=== PATIENT | female | born 1950 | race Caucasian/White ===

== ENCOUNTER 2017-07-05 03:06 | Emergency (ER) | payer OTHER, BC ==
[~2017-07-05] VITALS: Ht 167.6 cm; Wt 72.6 kg
[~2017-07-05 03:06] MED LIST: ACETAMINOPHEN325 M1 PO; ALBUTEROL2.5 MG/0.5 PO; BISACODYL SUPP10 MG RECTAL; BREO ELLIPTA 21 EACH PO; CIPRO250 M1 PO; COUMADIN 1MG TAB1 M1 PO; COUMADIN 2.5MG2.5 M1 PO; CRANBERRY200 MG PO; DIGOXIN125 MCG PO; FLOMAX0.4 MG PO; GENTEAL SEVERE10 GM OPHTHALMIC; KLOR-CON 1010 MEQ PO; LIORESAL 10 MG10 MG PO; LOPRESSOR50 PO; MIRALAX17 GM PO; MUCINEX TA600 MG/TA2 PO; MULTI VITAMIN1 EACH PO; NEURONTIN 300300 M1 PO; NEURONTIN600 MG PO; OLANZAPINE20 MG PO; OMEPRAZOLE20 MG PO; OXYCODONE HCL 55 MG PO; SENOKOT-S1 TA1 PO; TYLENOL325 MG PO; WELLBUTRIN XL150 MG PO; XANAX 0.25 MG0.25 MG PO; ZOCOR20 MG PO; ZYPREXA 5 MG TAB5 MG PO
[2017-07-05 03:53] LABS: URINE BILIRUBIN 2+ (Negative); URINE BLOOD 3+ (Negative); URINE CLARITY TURBID; URINE COLOR BROWN; URINE GLUCOSE-RANDOM* TRACE (Negative); URINE KETONES NEGATIVE (Negative); URINE PROTEIN (DIPSTICK) 2+ (Negative); URINE SPECIFIC GRAVITY 1.015 (1.005-1.035)
[2017-07-05 04:13] LABS: ICTOTEST (BILI CONFIRMATORY) Positive (Negative); URINE LEUKOCYTES-REFLEX 3+ (Negative); URINE NITRITE-REFLEX POSITIVE (Negative)
[2017-07-05 04:18] LABS: BACTERIA-REFLEX >30 Many /HPF (None Seen); CASTS None Seen /LPF (None Seen); CRYSTALS None Seen /LPF (None Seen); MUCUS 0-3 Light strn/LPF (None Seen); SQUAMOUS 4-10 Moderate /LPF (0-3); TRANSITIONAL EPITHEL CELL 0-3 Few /LPF (None Seen); URINE RBC >20 Many /HPF (0-2); URINE WBC-REFLEX >25 Many /HPF (0-5)
[2017-07-05 04:19] LABS: BASOPHILS 0.5 % (0.0-2.0); HEMOGLOBIN 12.6 gm/dL (12.0-15.0); LYMPHOCYTES 33.8 % (24.0-44.0); MCH 29.3 pg (26.0-34.0); MCHC 33.3 g/dL (28.0-37.0); MCV 88.2 fL (80.0-100.0); MONOCYTES 9.3 % (1.0-8.0); PLATELET COUNT 320 thou/uL (150-400); POLYS 53.4 % (36.0-66.0); RDW 15.6 % (10.5-14.5); WBC 7.5 thou/uL (4.0-11.0)
[2017-07-05 04:27] LABS: CALCIUM 9.6 mg/dL (8.5-10.1); CREATININE 0.7 mg/dL (0.6-1.0); POTASSIUM 3.6 mmol/L (3.5-5.1)
[2017-07-05] MEDS ORDERED: LASIX 40 MG TAB40 M2 PO (04:29)
[2017-07-05] MEDS ORDERED: LIDODERM1 EACH TRANSDERM (04:30)
[2017-07-05] MEDS ORDERED: CARISOPRODOL 3350 MG PO (04:31)
[2017-07-05] MEDS ORDERED: RITALIN5 MG PO (04:32)
[2017-07-05 04:33] LABS: ALBUMIN 3.1 g/dL (3.4-5.0); TOTAL BILIRUBIN 1.1 mg/dL (<0.1-1.0); TOTAL PROTEIN 7.2 g/dL (6.4-8.2)
[2017-07-05] MEDS ORDERED: OXYCONTIN10 M1 PO (04:33)
[2017-07-05] MEDS ORDERED: MELATONIN3 MG PO (04:33)
[2017-07-05] MEDS ORDERED: VOLTAREN GEL 1100 G2 TOP (04:34)
[2017-07-05] MEDS ORDERED: FLOVENT HFA 4444 MCG INH (04:36)
[2017-07-05] MEDS ORDERED: DUONEB 2.5-0.5 M3 ML INH (04:37)
[2017-07-05] MEDS ORDERED: ABILIFY 2 MG2 M1 PO (04:39)
[2017-07-05] MEDS ORDERED: PEPCID20 MG PO (04:39)
[2017-07-05] MEDS ORDERED: OXYBUTYNIN 5 MG5 M2 PO (04:40)
[2017-07-05] MEDS ORDERED: ELIQUIS5 MG PO (04:40)
[2017-07-05] MEDS ORDERED: NEURONTIN 300300 M1 PO (04:42)
[2017-07-05] MEDS ORDERED: PYRIDIUM200 MG PO (04:46)
[2017-07-05] MEDS ORDERED: BACTRIM DS TAB1 EACH PO (04:46)
== END 2017-07-05 05:34 | disposition home or self-care (01) ==
LOC: ER 03:06
PROVIDERS: Emergency Medicine
DX: N39.0 Urinary tract infection, site not specified (principal); I48.91 Unspecified atrial fibrillation; Z96.653 Presence of artificial knee joint, bilateral; Z86.73 Personal history of transient ischemic attack (TIA), and cerebral infarction without residual deficits; Z90.12 Acquired absence of left breast and nipple; Z88.1 Allergy status to other antibiotic agents

== ENCOUNTER 2018-10-07 10:08 | Inpatient (IN) | payer OTHER, BC ==
[~2018-10-07] VITALS: Ht 167.6 cm; Wt 118.0 kg
[2018-10-07] VITALS (15 sets, daily range): BP systolic 78–101; BP diastolic 31–67
--- NOTE | ~2018-10-07 | HC ---
[facility] [place] [address] CONSULTATION Name: PIETRO MOSER Room #: 362-[facility] IN M.R.#: [id number] Admission: 10/07/18 Attend Phys: Lima Ashley Discharge: Date of : 46 Report #: [id number] THIS REPORT FOR: //name// CC: Lima Gomez Ebonie PALLIATIVE CARE CONSULTATION REQUESTING PHYSICIAN: Dr. Loomis. CHIEF COMPLAINT: Acute combined respiratory failure. HISTORY OF PRESENT ILLNESS: The patient is a 68-year-old female who presented initially on 10/07/2018 with acute hypoxic respiratory failure thought to be due to several combined factors including dysphagia, resulting in aspiration pneumonia, as well as bronchomalacia. She had had significant mucus plugging and has a history of COPD and asthma. The patient had subsequently had intubation and then extubation on 10/15/2018, initially there were reports she was not tolerating a vest appropriately; however, she has been able to do that today. The patient is apparently to have another bronchoscopy tomorrow, but there is concern that she refused speech therapy evaluation and has significant dysphagia, that she will have recurrent aspiration and also has been progressively worsening in her overall pneumonia condition. This has been discussed with the patient's daughter many times, who I have discussed with her current care today. Discussed with the patient today, although she seems confused on many subject she will respond at times, but then at other times she does not respond appropriately. Certainly her attention is altered, falling asleep several times during my interview. She denies significant pain at this time, but then also desired to have help, which she has stated to her daughter multiple times as well. PAST MEDICAL HISTORY: COPD, atrial fibrillation, history of cerebrovascular disease, left hemiparesis, dysphagia. This is her second intubation. She had previously been intubated approximately 1 year ago it sounds like. She has had multiple hospitalizations over the last year. ALLERGIES: KEFLEX, ERYTHROMYCIN, ZITHROMAX AND GENTAMICIN. SOCIAL HISTORY: Currently listed as full code. I have confirmed this with daughter at this time. Not currently a tobacco user. No alcohol use significantly. FAMILY HISTORY: Noncontributory. PAST SURGICAL HISTORY: Unknown at this time. [address] [address] CONSULTATION Name: PIETRO MOSER Room #: 362-[facility] IN M.R.#: [id number] Admission: 10/07/18 Attend Phys: Lima Ashley Discharge: Date of : 46 Report #: [id number] REVIEW OF SYSTEMS: Difficult to obtain at this time. She denies significant pain again, however, again it is difficult to obtain most of her review of systems. She occasionally called out for help and then states that she wanted to do physical therapy, but it is very difficult to elicit her actual needs at this time. PHYSICAL EXAMINATION: VITAL SIGNS: Include temperature 36.9, pulse 90, respirations 20, blood pressure 126/83, 100% on nasal cannula. GENERAL: The patient was initially alert, but recurrently falling asleep. She is in no acute distress currently. HEENT: Extraocular muscles appear to be intact. She is normocephalic and atraumatic. No scleral icterus. No conjunctival injection. CARDIOVASCULAR: Regular rate and rhythm currently without murmur. LUNGS: She has diffuse rales that are coarse. ABDOMEN: Soft, not significantly distended at this time. EXTREMITIES: Able to move upper extremities, although limited command following at this time. ASSESSMENT AND PLAN: 1. Acute combined respiratory failure. It appears the patient is progressing again towards the path of possible intubation. I first discussed this extensively with the patient. However, she was unable to give any decisions with regards to this. Discussed this extensively with daughter; however, again she was reluctant to make a decision with regards to this, although she will be discussing with the patient's sister and possibly having a decision prior to bronchoscopy tomorrow, which I said is a goal as a possibility considering we would need to have some decision for the future. Certainly emphasized that if the patient were to need CPR, we would be dealing with a significant situation in which her recovery would be very unlikely. Certainly, I emphasized if she were to need recurrent intubation, her percentage chance of being extubated successfully would be significantly lower and discussed this in the context of her quality of life overall. Spent approximately 35 minutes in discussion of advanced care planning today. 2. Aspiration pneumonia. Currently without speech therapy, which I have discussed with the daughter. She is unlikely to have a significant recovery and although even she would have speech therapy, it would be difficult to say that she would not have recurrence of her aspiration pneumonia given her previous cerebrovascular disease. This is a boating sign at this time for her future prognosis. 3. Atrial fibrillation. Appreciate primary care team's management. Appreciate this consultation. I will continue to follow up. We will await bronchoscopy results, also decisions hopefully to be made prior to this with regards to code status at the very minimum. If not, whether she would want a bronchoscopy or not in the future or to have any further things done. [facility] [address] [place] [address] CONSULTATION Name: PIETRO MOSER Room #: 362-P [facility] IN M.R.#: [id number] Admission: 10/07/18 Attend Phys: Lima Ashley Discharge: Date of : 46 Report #: [id number] Appreciate from the daughter that she has been on hospice care previously that would of course be a direction that may be amenable to the future, we will discuss further as available. By: [id number] José Luis Delong DO /celina
[~2018-10-07 10:08] MED LIST changes: +ABILIFY 2 MG2 M1 PO; +BACTRIM DS TAB1 EACH PO; +CARISOPRODOL 3350 MG PO; +DUONEB 2.5-0.5 M3 ML INH; +ELIQUIS5 MG PO; +FLOVENT HFA 4444 MCG INH; +LASIX 40 MG TAB40 M2 PO; +LIDODERM1 EACH TRANSDERM; +MELATONIN3 MG PO; +OXYBUTYNIN 5 MG5 M2 PO; +OXYCONTIN10 M1 PO; +PEPCID20 MG PO; +PYRIDIUM200 MG PO; +RITALIN5 MG PO; +VOLTAREN GEL 1100 G2 TOP
[2018-10-07 11:25] LABS: ABSOLUTE NEUTROPHILS 9.4 thou/uL (1.4-8.2); BASOPHILS 0.2 % (0.0-2.0); EOSINOPHILS 1.4 % (0.0-3.0); HEMATOCRIT 27.3 % (37.0-47.0); HEMOGLOBIN 8.8 gm/dL (12.0-15.0); LYMPHOCYTES 7.7 % (24.0-44.0); MCH 27.5 pg (26.0-34.0); MCHC 32.1 g/dL (28.0-37.0); MCV 85.8 fL (80.0-100.0); MONOCYTES 9.5 % (1.0-8.0); PLATELET COUNT 399 thou/uL (150-400); POLYS 81.2 % (36.0-66.0); RBC 3.19 mil/uL (4.20-5.00); RDW 16.6 % (10.5-14.5); WBC 11.6 thou/uL (4.0-11.0)
[2018-10-07 11:28] LABS: CALCIUM 9.5 mg/dL (8.5-10.1); CREATININE 0.9 mg/dL (0.6-1.0); POTASSIUM 4.3 mmol/L (3.5-5.1)
[2018-10-07 12:19] LABS: URINE BLOOD 3+ (Negative); URINE CLARITY CLOUDY; URINE COLOR RED; URINE GLUCOSE-RANDOM* NEGATIVE (Negative); URINE KETONES NEGATIVE (Negative); URINE LEUKOCYTES-REFLEX 3+ (Negative); URINE NITRITE-REFLEX NEGATIVE (Negative); URINE PROTEIN (DIPSTICK) 2+ (Negative); URINE SPECIFIC GRAVITY 1.015 (1.005-1.035)
[2018-10-07 12:20] LABS: BE(vivo) 0.9 mmol/L (-2 to +3); HCO3 27.1 mmol/L (22.0-26.0); PCO2 50.9 mmHg (35.0-45.0); pH 7.344 (7.360-7.450); sO2 79.9 % (92.0-98.0)
[2018-10-07 12:22] LABS: PO2 46.9 mmHg (80.0-100.0)
[2018-10-07 12:23] LABS: ICTOTEST (BILI CONFIRMATORY) Negative (Negative); URINE BILIRUBIN NEGATIVE (Negative)
[2018-10-07 12:27] LABS: CASTS None Seen /LPF (None Seen); CRYSTALS None Seen /LPF (None Seen); SQUAMOUS 4-10 Moderate /LPF (0-3); URINE RBC >20 Many /HPF (0-2)
[2018-10-07 12:28] LABS: BACTERIA-REFLEX >30 Many /HPF (None Seen); URINE WBC-REFLEX >25 Many /HPF (0-5)
--- NOTE | 2018-10-07 19:32 | NUR ---
PATIENT IN ICU THIS EVENING, ORIENTED TO PERSON. FORGETFUL AND CONTINUOUSLY TALKING AND REPEATING HERSELF. VITALS STABLE, ADMISSION ASSESSEMENT DOCUMENTED. HISTORY COMPLETED MOSTLY FROM PREVIOUS ADMISSION SINCE PATIENT NOT ABLE TO GIVE HISTORY AND NO FAMILY AT THE BEDSIDE. WOUNDS DOCUMENTED AND PICS TAKEN AND IN THE CHART. CAREPLAN ACTIVATED. WILL MONITOR BP CLOSELY AND START LEVO IF NEEDED.
[2018-10-07 19:43] LABS: BE(vivo) -1.8 mmol/L (-2 to +3); HCO3 24.7 mmol/L (22.0-26.0); PCO2 49.2 mmHg (35.0-45.0); PO2 155.8 mmHg (80.0-100.0); sO2 98.8 % (92.0-98.0)
[2018-10-07 19:44] LABS: pH 7.318 (7.360-7.450)
--- NOTE | 2018-10-07 21:30 | NUR ---
VASCULAR ACCESS CALLED TO ER FOR THIS PT WITH PROB SEPSIS. PT HAS A MASTECTOMY, HAS RESIDUAL STROKE CONTRACTURES AND IS CONFUSED. PER DR BRASWELL A TLIJ CL WAS PLACED IN THE LT IJ MEDICALLY NECESSARILY. LINE TRIMMED AT 28CM AND PULLED BACK 4CM AFTER CXR TO LEAVE THE TIP AT THE CAJ.
[2018-10-08] VITALS (41 sets, daily range): BP systolic 73–136; BP diastolic 33–80
[2018-10-08 06:01] LABS: HEMATOCRIT 26.7 % (37.0-47.0); HEMOGLOBIN 8.6 gm/dL (12.0-15.0); MCH 27.5 pg (26.0-34.0); MCHC 32.3 g/dL (28.0-37.0); MCV 85.3 fL (80.0-100.0); RBC 3.12 mil/uL (4.20-5.00); RDW 16.6 % (10.5-14.5); WBC 11.6 thou/uL (4.0-11.0)
[2018-10-08 06:16] LABS: ALBUMIN 1.8 g/dL (3.4-5.0); CALCIUM 8.9 mg/dL (8.5-10.1); CREATININE 0.5 mg/dL (0.6-1.0); POTASSIUM 3.8 mmol/L (3.5-5.1); TOTAL BILIRUBIN 0.7 mg/dL (<0.1-1.0); TOTAL PROTEIN 6.7 g/dL (6.4-8.2)
--- NOTE | 2018-10-08 08:05 | EKG ---
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
--- NOTE | 2018-10-08 12:34 | NUR ---
WOUND CARE CONSULT; THE WOUND TO THE LEFT ANTERIOR ANKLE ETIOLOGY IS CONSISTANT WITH MECHANICAL PRESSURE, LIKELY FROM OFFLOADING BOOTS. FULL THICKNESS DAMAGE. THE RIGHT ANKLE HAS TENDON EXPOSED. THE RIGHT CALF WOUND HAS AN UNSTABLE BLISTER. ALL THE WOUNDS HAVE XEROFORM AND BOARDERED FOAM WHICH IS APPROPRIATE. RECOMMEDATION; DR MAGGY FLORES TO SEE TOMORROW. DISCUSSED WITH SETH
--- NOTE | 2018-10-08 19:08 | HC ---
[facility] [place] [address] CONSULTATION Name: PIETRO MOSER Room #: 244-P [facility] IN M.R.#: [id number] Admission: 10/07/18 Attend Phys: Lima Ashley Discharge: Date of : 46 Report #: [id number] THIS REPORT FOR: //name// CC: [facility] DATE OF SERVICE: 10/07/2018 PULMONARY CONSULTATION REFERRAL PHYSICIAN: Dr. Ashley. REASON FOR REFERRAL: Known respiratory failure. HISTORY OF PRESENT ILLNESS: The patient is a 68-year-old [facility] patient who was brought to the Emergency Room with altered mental status. She was found to have an abnormal chest x-ray. She was hypoxic. A pulmonary consultation was requested. The [facility] resides at the [facility]. She has a history of CVA, multiple sclerosis. She was last hospitalized here in 2016. She is awake, incoherent, states it is 1995. According to records, she was felt to be normal 3 days prior to presentation. Her saturation earlier today was 66% on 3 liters of O2. Nursing staff also noted decreased level of consciousness. However, the patient is confused at baseline. Otherwise, information is limited given the patient's mental status. PAST MEDICAL HISTORY: Notable for CVA with left-sided weakness, progressive muscle weakness and debility, she has been bedridden recently, breast cancer status post left mastectomy, COPD, atrial fibrillation, anxiety disorder, hypotension, nephrolithiasis, reflux disease. PAST SURGICAL HISTORY: Bilateral knee replacement and also as mentioned above. ALLERGIES: ERYTHROMYCIN, WHICH CAUSES ANAPHYLAXIS, GENTAMICIN ALSO CAUSES ANAPHYLAXIS, AZITHROMYCIN, REACTIONS UNSPECIFIED, CEPHALOSPORIN, REACTION UNSPECIFIED. MEDICATIONS: From the facility include Xanax, Wellbutrin, Neurontin, Mucinex, multivitamins, MiraLax, potassium supplements, Zocor, cranberry, Lasix, Lidoderm, Soma, Ritalin, OxyContin, melatonin, Voltaren, Flovent 44 mcg 1 puff twice a day, DuoNeb q.i.d. p.r.n., Abilify, Pepcid, oxybutynin, Eliquis. FAMILY HISTORY: Unknown. [facility] [address] [place] [address] CONSULTATION Name: PIETRO MOSER Room #: 244-P [facility] IN .R.#: [id number] Admission: 10/07/18 Attend Phys: Lima Ashley Discharge: Date of : 46 Report #: [id number] SOCIAL HISTORY: Unknown. REVIEW OF SYSTEMS: Not able to be obtained given current mental status. PHYSICAL EXAMINATION: GENERAL: She is awake, incoherent, mildly dyspneic. VITAL SIGNS: Temperature is 97.5 degrees Fahrenheit, pulse is 96, respiratory rate is 20, blood pressure is 94/44 mmHg, saturation 100%. HEENT: Normocephalic, atraumatic. NECK: Supple, without lymphadenopathy or thyromegaly. CHEST: Breath sounds are markedly decreased in the right lung field, fair breath sounds on the left. No obvious wheezes or rales. CARDIOVASCULAR: Heart sounds are distant. No obvious murmurs or gallop. Pulses are 2+/4+ bilaterally. BREASTS: Exam is deferred. ABDOMEN: Soft, nontender, no organomegaly or masses felt. GENITOURINARY: Deferred. RECTAL: Deferred. EXTREMITIES: No cyanosis, clubbing, edema. MUSCULOSKELETAL: Notable for moderate muscle atrophy with some evidence of contractures. NEUROLOGIC: She is awake, incoherent. She appears quite weak throughout with muscle wasting. LABORATORY DATA: CT chest angiogram showed no evidence of pulmonary embolus, elevated right diaphragm, mucus plugging involving the right main stem bronchus, moderate right-sided pleural effusion, mild atelectasis seen in the left lower lobe and no evidence of pulmonary embolus. CT head grossly unremarkable except for old right frontotemporal infarct. Procalcitonin level is normal. Chest x-ray shows haziness throughout the lung field with small aeration in the right upper lobe, pleural effusion and markedly elevated right hemidiaphragm, left lower lobe atelectasis. Electrolytes are normal except for sodium 135. WBC 11,600, hemoglobin 8.8. Arterial blood gas revealed pH 7.34, pCO2 of 50, pO2 46 on FiO2 100% ? saturation on the monitor shows 100%. IMPRESSION: 1. Acute hypoxic hypercapnic respiratory failure in this 68-year-old white female with history of cerebrovascular accident, breast cancer, progressive muscle weakness and debility. CT chest angiogram showed no evidence of pulmonary embolus. Right lung field appears to be completely atelectatic with mucus plugging. Etiology probably related to mucus plugging, but cannot rule out pneumonia as a cause. 2. Near completely opacified right lung field. Some of the appearance appears to be pleural effusion and some of the lung parenchyma suggests solid tissue density. Concerns for malignant process. [facility] [address] [place] [address] CONSULTATION Name: PIETRO MOSER Room #: 244-P ADM IN M.R.#: [id number] Admission: 10/07/18 Attend Phys: Lima Ashley Discharge: Date of : 46 Report #: [id number] 3. Chronic elevated right hemidiaphragm noted several years ago on past x-ray. This appears to have worsened over time. 4. History of cerebrovascular accident with left hemiparesis, her generalized weakness appeared to have progressed now to bilateral to bedridden status. 5. Remote history of breast cancer, status post left mastectomy. Unclear if she has noticed a recurrence of breast cancer. 6. Chronic obstructive pulmonary disease. 7. Atrial fibrillation. 8. Hypotension. 9. History of nephrolithiasis. RECOMMENDATION: Agree with broad-spectrum antibiotics, wean O2 for saturation 90%. I am not entirely certain whether arterial blood gases accurate given saturation now reading 100%. She had been on Eliquis on presentation. This will need to be on hold for possible procedures. I think it is reasonable to consider diagnostic bronchoscopy for possible mucus plugging along with other endobronchial processes. She may need thoracentesis. She also may need other surgical procedures regarding a right chest. However, given her generalized medical condition with progressive debility and weakness with past history of CVA, encephalopathy, I am concerned whether the patient can tolerate all the invasive procedures. We will discuss with the patient's daughter. Thank you for this consultation. <ELECTRONICALLY SIGNED> By: Jonah Watson MD 10/08/18 1908 [id number] 1 Jonah Watson MD /nt
--- NOTE | 2018-10-08 19:15 | NUR ---
Awake and alert most of the day. Dozed for brief periods. Atrial fibrillation. Levophed gtt titrated to keep MAP > 65 mm Hg. O2 at 4 liters per cannula. Breath sounds are very coarse. Suctioning yellow secretions from back of throat with yankauer. Pt needs more strength to cough and clear secretions from throat. Dressing changes to lower legs done by wound care nurse today. Daughter here at end of shift for visit. Pt MRSA nasal sawb noted to be positive at end of shift. Pt placed in isolation. Report given to RN assuming care.
--- NOTE | 2018-10-08 23:00 | NUR ---
ASSUMED CARE OF PATIENT AT 1900. DAUGHTER AT BEDSIDE. EDUCATION GIVEN REGARDING ICU POLICIES AND PROTOCOLS. DAUGHTER VERY UPSET THAT SHE IS UNABLE TO COME IN DURING CLOSED TIMES. PAMPHLET GIVEN. PATIENT CODE ALSO GIVEN. DISCUSSED PAIN MANAGEMENT. DR ROBERTSON CALLED TO VERIFY MED ORDERS. HE SPOKE WITH DAUGHTER ABOUT PLAN OF CARE.
[2018-10-09] VITALS (51 sets, daily range): BP systolic 93–139; BP diastolic 42–85
--- NOTE | 2018-10-09 04:09 | NUR ---
ASSUMED CARE OF PATIENT AT 1900. REMAINS IN A FIB, TACHYCARDIC THROUGH THE NIGHT. ALERT TO SELF, BUT SAYS RANDOM REQUESTS THAT DON'T FIT THE CONVERSATION. MEDICATED FOR PAIN NEEDED, SOME RELIEF NOTED. TURNED Q2, NEEDING FREQUENT ORAL SUCTIONING. NOT PROGRESSING TOWARDS POC GOALS.
[2018-10-09 06:01] LABS: CALCIUM 8.9 mg/dL (8.5-10.1); CREATININE 0.5 mg/dL (0.6-1.0); POTASSIUM 3.1 mmol/L (3.5-5.1)
--- NOTE | 2018-10-09 08:00 | NUR ---
ASSUMMED CARE OF PATIENT ORALLY SUCTIONED FOR LARGE AMT OF CREAMY SPUTUM, UNABLE TO SWALLOW SECRETIONS. REMAINS IN AFIB. MAP GREATER THAN 65 MMHG.
--- NOTE | 2018-10-09 09:18 | NUR ---
ST rec NPO. If npo status will be extended several days, consider dobhoff and start of jevity 1.5 goal of 40ml/hr.
--- NOTE | 2018-10-09 12:08 | NUR ---
PT RESIDES AT [facility] FAXED CLINICAL UPDATE TO FACILITY SPOKE WITH MYRA IN ADM SHE RECEIVED UPDATE. DCP TO FOLLOW.
--- NOTE | 2018-10-09 12:25 | NUR ---
BEDSIDE BRONCH COMPLETED BY DR. ROBERTSON PATIENT TOLERATERED PROCEDURE WELL. COPIOUS AMT OF LT BROWN COLORED SPUTUM OBTAINED.
--- NOTE | 2018-10-09 16:58 | NUR ---
CM ASSESSMENT: CASE OPENED FOR DC PLANNING. PT ADMITS FORM LTC AT [facility] WITH SEPSIS. WILL RETURN WHEN MEDICALLY STABLE. FACILITY ADMISSIONS UPDATED.
--- NOTE | 2018-10-09 18:45 | NUR ---
PATIENT NOT PROGRESSING TOWARDS OUTCOME GOALS EVIDENT BY, STILL UNABLE TO HANDLE SECRETIONS, WEAK INEFFECTIVE COUGH, FIGHTS AND BITES DOWN ON SUCTION SWAB WHEN ATTEMPTING TO ORALLY SUCTION OR DO ORAL CARE. POTASSIUM SLOWLY INCREASING GIVEN KCL PER PROTOCOL. C/O PAIN AT DIFFERENT AREAS EACH TIME, RELIEF WITH PAIN MEDICATION. MONITOR RATE AND BP TRENDING UPWARD THE DAY PROGRESSED, MONITOR AFIB WITH VENT RESPONSE OF 110 TO 120'S AFTER MORPHINE SULFATE AND LOPRESSOR GIVEN.
[2018-10-10] VITALS (43 sets, daily range): BP systolic 70–876; BP diastolic 25–87
[2018-10-10 03:49] LABS: BE(vivo) -9.6 mmol/L (-2 to +3); HCO3 15.7 mmol/L (22.0-26.0); PCO2 32.2 mmHg (35.0-45.0); PO2 239.4 mmHg (80.0-100.0); pH 7.305 (7.360-7.450); sO2 99.5 % (92.0-98.0)
[2018-10-10 05:01] LABS: HEMATOCRIT 29.4 % (37.0-47.0); HEMOGLOBIN 9.2 gm/dL (12.0-15.0); MCH 27.3 pg (26.0-34.0); MCHC 31.2 g/dL (28.0-37.0); MCV 87.5 fL (80.0-100.0); RBC 3.36 mil/uL (4.20-5.00); WBC 26.2 thou/uL (4.0-11.0)
[2018-10-10 05:07] LABS: URINE BILIRUBIN NEGATIVE (Negative); URINE BLOOD 3+ (Negative); URINE CLARITY CLEAR; URINE COLOR YELLOW; URINE GLUCOSE-RANDOM* NEGATIVE (Negative); URINE KETONES TRACE (Negative); URINE NITRITE-REFLEX NEGATIVE (Negative); URINE PROTEIN (DIPSTICK) TRACE (Negative); URINE SPECIFIC GRAVITY 1.015 (1.005-1.035); URINE UROBILINOGEN 0.2 E.U./dl (0.2-1.0)
[2018-10-10 05:11] LABS: URINE LEUKOCYTES-REFLEX 2+ (Negative)
[2018-10-10 05:12] LABS: CALCIUM 9.3 mg/dL (8.5-10.1); CREATININE 0.7 mg/dL (0.6-1.0); POTASSIUM 3.8 mmol/L (3.5-5.1)
[2018-10-10 05:35] LABS: BACTERIA-REFLEX 1-9 Few /HPF (None Seen); MUCUS 4-6 Moderate strn/LPF (None Seen); SQUAMOUS >10 Many /LPF (0-3); URINE RBC >20 Many /HPF (0-2); URINE WBC-REFLEX >25 Many /HPF (0-5); WBC CLUMPS Few (None Seen); YEAST-REFLEX Present (None Seen)
[2018-10-10 05:36] LABS: AMORPHOUS URATES Moderate /LPF (None Seen); FINE GRANULAR CASTS 0-3 Few /LPF (None Seen)
[2018-10-10 06:16] LABS: APTT 30.8 Seconds (24.5-32.8); FIBRINOGEN 559.8 mg/dL (210-360); INR 1.3; PROTIME 13.4 Seconds (9.3-11.4)
--- NOTE | 2018-10-10 07:51 | NUR ---
Took over care of pt. around 1944 on 6L/HF. Very poor cough effort,coarse crackles and pt. in a fib RVR. RT called to NT suction pt. CLINICAL TECHNOLOGIST notified and order recieved.PCXR done and results called. Daughter who is at the bedside updated. Dr. Watson also notified. Cardizem bolus given ,lasix 40 mg IV x1 and diuresed well from it. Cardizem gtt. started and titrated.Breathing tx also given by RT and placed pt. on 50% ventimask and 6L. After meds and tx , RT was able to titrate ventimask down to 40% and take O2 off since maintaining O2 sat in the mid 90's. Pt. repositioned prn for comfort. Around 0 after pt. has been turned , she sounded very coarse again and having a hard time mobilizing secretions. RT called to NT suction then when this RN came back to her room , she became unresponsive and unable to obtain a pulse. Code blue activated. Pt. now intubated and on vent at 100% FIO2. Attempted to call daughter x2 and also attempted to call sister. Left messages for both but no call back. Dr. Watson notified and updated on pt.'s condition. Profopol , levophed, cardizem gtt. and IV fluids infusing. ABG results called to Dr. Watson who ordered to put pt. on sepsis protocol. Consult to Dr. Acosta Mayes called. Attempted to call daughter again this am and finally answered. Updated on pt.'s condition. Will continue to monitor. Report to day RN.
[2018-10-11] VITALS (29 sets, daily range): BP systolic 102–146; BP diastolic 32–99
[2018-10-11 04:29] LABS: HEMOGLOBIN 9.5 gm/dL (12.0-15.0); MCHC 31.7 g/dL (28.0-37.0); MCV 85.2 fL (80.0-100.0); PLATELET COUNT 536 thou/uL (150-400); RBC 3.52 mil/uL (4.20-5.00); RDW 17.2 % (10.5-14.5); WBC 20.3 thou/uL (4.0-11.0)
[2018-10-11 04:46] LABS: ALBUMIN 1.9 g/dL (3.4-5.0); CALCIUM 8.9 mg/dL (8.5-10.1); MAGNESIUM 1.7 mg/dL (1.8-2.4); POTASSIUM 3.8 mmol/L (3.5-5.1); TOTAL BILIRUBIN 0.8 mg/dL (<0.1-1.0); TOTAL PROTEIN 6.7 g/dL (6.4-8.2)
[2018-10-11 05:03] LABS: BE(vivo) -5.5 mmol/L (-2 to +3); PCO2 33.4 mmHg (35.0-45.0); PO2 196.8 mmHg (80.0-100.0); pH 7.372 (7.360-7.450); sO2 99.3 % (92.0-98.0)
[2018-10-11 05:35] LABS: ABSOLUTE NEUTROPHILS 19.9 thou/uL (1.4-8.2)
[2018-10-11 05:36] LABS: ANISOCYTOSIS 1+; PLATELET ESTIMATE INCREASED; POIKILOCYTOSIS 1+
--- NOTE | 2018-10-11 07:51 | NUR ---
END OF SHIFT SUMMARY: At beginning of shift, pt had OG tube curled in back of throat. OG removed and NG inserted left nare to 64 cm without problem; position checked per x-ray. Tolerating tube feeding and water boluses, able to increase rate from 25 cc/hr to 35 cc/hr over this shift. Goal rate is 50 cc/hr. Monitor remains a-fib, rate controlled, 70's to 90's, with Amiodorone with rare PVC's. Levophed at 13 mcg/min at beginning of shift, able to titrate down to 9 mcg/min. MAP remains > 60, SBP remains > 90. Urine output only 130 cc this shift. Vancomycin trough drawn at 0145 was 37; repeated at 0400 was 34; Vancomycin held. No changes in skin integrity.
--- NOTE | 2018-10-11 12:42 | HC ---
[facility] [place] [address] CONSULTATION Name: PIETRO MOSER Room #: 244-P [facility] IN M.R.#: [id number] Admission: 10/07/18 Attend Phys: Lima Ashlye Discharge: Date of : 46 Report #: [id number] THIS REPORT FOR: //name// CC: [facility] DATE OF SERVICE: 10/10/2018 REASON FOR CONSULTATION: I was asked to evaluate concerning respiratory failure, healthcare-associated pneumonia and shock. HISTORY OF PRESENT ILLNESS: The patient is a 68-year-old snf resident with previous stroke and left hemiparesis. Over the last 3-4 days, she has had general fatigue, mild lethargy. No other focal complaints. Her daughter was at the bedside and able to assist in her history. She checks on her regularly. She was concerned several days ago that she was too weak to feed herself. Subsequently, she had further mental decline and hypoxic. She was brought in through the Emergency Room, found to have right lung pneumonia. She does have confusion as her baseline. However, she is able to communicate with the children. Following her initial hospitalization, she had evidence of mucus plugging into the right lung. Yesterday, she underwent a bronchoscopy with right mainstem bronchus mucus plugging. This was suctioned. X-ray improved. She was still on supplemental oxygen. Last evening had further respiratory decline and suffered a cardiopulmonary arrest. Now intubated on FiO2 of 50%. Still having a moderate amount of tracheal secretions. Blood pressure has been in the 80s systolic. Heart rate 100-110 range. She was able to open her eyes, but not responsive otherwise. She has had a dense left hemiparesis. She has an OG to suction. There has been no diarrhea. She has a suprapubic catheter in place with reasonable urine output. Urine culture from admission has grown Proteus. She also has pressure wounds to her lower legs that have been longstanding. REVIEW OF SYSTEMS: Further 10-point review of systems was negative other than what is described above. PAST MEDICAL HISTORY: Stroke with dense left hemiparesis, progressive debility and has been essentially bedridden. Breast cancer status post left mastectomy, COPD, atrial fibrillation, anxiety disorder, nephrolithiasis, gastroesophageal reflux, bilateral total knee arthroplasties. ALLERGIES: ERYTHROMYCIN WITH ANAPHYLAXIS, GENTAMICIN ANAPHYLAXIS, AZITHROMYCIN, CEPHALOSPORINS. MEDICATIONS: As noted on her MAY including vancomycin and meropenem. Other medications as noted on her MAY. [facility] [address] [place] [address] CONSULTATION Name: PIETRO MOSER Room #: 244-P [facility] IN [facility]#: [id number] Admission: 10/07/18 Attend Phys: Lima Ashley Discharge: Date of : 46 Report #: [id number] FAMILY HISTORY: Noncontributory. SOCIAL HISTORY: Nonsmoker, no significant alcohol intake. PHYSICAL EXAMINATION: GENERAL: She was frail in bed, able to arouse, but not follow commands. Dense left hemiparesis. 2+ lower extremity edema. No palpable adenopathy. HEENT: Eyes, without scleral icterus. MOUTH: Without mucositis. NECK: Supple. LUNGS: Coarse breath sounds in the right. HEART: Irregular without murmur, gallop or rub. ABDOMEN: Firm with no definite mass or hepatosplenomegaly. Suprapubic catheter site was unremarkable. GENITOURINARY: External genitalia without lesion or rash. RECTAL: Not performed. EXTREMITIES: With 2+ edema, no cyanosis or clubbing. She had two ulcerations with tendon exposure to her right posterior leg distally. There was no cellulitis. There is no purulent drainage. She also had one small lesion to her left foot. NEUROLOGIC: Left dense hemiparesis. Mood, sedate. LABORATORY STUDIES: Procalcitonin 0.6. Sodium is 143, potassium 3.8, bicarbonate 19, creatinine 0.7. Hemoglobin is 9.2; WBC is 26.2 and platelet count 504,000. Urinalysis is with pyuria, hematuria, few yeast and bacteria. Previous urine culture showed Proteus. Blood cultures negative. Chest x-ray, improved aeration of the right lung with decreased opacification and pleural effusion. Culture results Proteus mirabilis from the urine on 10/07/2018, sensitive to second and third generation cephalosporins, gentamicin, meropenem, Zosyn, Bactrim. Blood cultures negative. Bronchoscopy cultures are pending. Repeat cultures after intubation pending. IMPRESSION: A 68-year-old snf resident post-cardiopulmonary arrest with suspected septic shock, now responding to fluids and resuscitative measures. She has acute hypercapnic and hypoxic respiratory failure with right lung pneumonia from healthcare-associated aspiration. MRSA screen was positive with cultures pending. She has right mainstem mucus plugging with moderate bilateral bronchial malacia noted on bronchoscopy. 1. Chronic obstructive pulmonary disease. 2. Right diaphragmatic weakness. 3. Cystitis due to Proteus mirabilis catheter associated. 4. Atrial fibrillation. 5. Cerebrovascular accident with left hemiparesis. 6. Remote history of breast cancer and left mastectomy. [facility] [address] [place] [address] CONSULTATION Name: PIETRO MOSER Room #: 244-P ADM IN M.R.#: [id number] Admission: 10/07/18 Attend Phys: Lima Ashley Discharge: Date of : 46 Report #: [id number] RECOMMENDATION: We will continue broad antibiotic coverage for healthcare-associated pneumonia. The patient has several drug allergies and will continue with vancomycin and meropenem as dosed. Continue with pulmonary toilet. Full ICU support and sepsis protocol. I have discussed with nursing staff and the patient's daughter at the bedside. Given the patient's other comorbidities and general debility, her mortality risk remains significant. <ELECTRONICALLY SIGNED> By: Dieudonne Mayes MD 10/11/18 1242 [id number] [id number] Dieudonne Mayes MD /nt
--- NOTE | 2018-10-11 18:38 | NUR ---
ASSUMED CARE THIS AM. PATIENT WITH EYES OPEN. FOLLOWS SIMPLE COMMANDS. RESTLESS AND CHEWING ON ETT. RESP PLACED BITE BLOCK. AFIB ON MONITOR. BIT THROUGH HI LO SUCTION CATHETER AND ETT REPLACED BY DR. ROBERTSON. NO OTHER ISSUES THIS SHIFT
[2018-10-12] VITALS (26 sets, daily range): BP systolic 96–1196; BP diastolic 30–99
[2018-10-12 05:32] LABS: HCO3 19.1 mmol/L (22.0-26.0); PCO2 32.2 mmHg (35.0-45.0); PO2 180.5 mmHg (80.0-100.0); pH 7.392 (7.360-7.450); sO2 99.2 % (92.0-98.0)
[2018-10-12 05:59] LABS: ABSOLUTE NEUTROPHILS 12.4 thou/uL (1.4-8.2); BASOPHILS 0.1 % (0.0-2.0); HEMATOCRIT 27.9 % (37.0-47.0); HEMOGLOBIN 8.9 gm/dL (12.0-15.0); MCH 27.2 pg (26.0-34.0); MCV 85.2 fL (80.0-100.0); MONOCYTES 3.5 % (1.0-8.0); PLATELET COUNT 480 thou/uL (150-400); POLYS 90.4 % (36.0-66.0); RBC 3.28 mil/uL (4.20-5.00); RDW 17.3 % (10.5-14.5); WBC 14.4 thou/uL (4.0-11.0)
[2018-10-12 06:44] LABS: CALCIUM 8.9 mg/dL (8.5-10.1); CREATININE 0.9 mg/dL (0.6-1.0); POTASSIUM 3.2 mmol/L (3.5-5.1)
--- NOTE | 2018-10-12 08:37 | NUR ---
PT SEDATED. NOTED CHEWING ON ETT TUBE. PROPOFOL AT 20 MCGS. NO APARRENT PAIN. VSS. AFEBRILE. OFF LEVOPHED AT 22OO. TOLERATING VENT SETTINGS. HIGH TF RESIDUALS. WOUND CARE PERFROMED. FREQUENT ORAL CARE AND TURNS. URINE OUTPUT NOTED. NO COMPLAINS. WILL CONTINUE TO MONITOR
--- NOTE | 2018-10-12 16:16 | NUR ---
FAXED CLINICAL UPDATE TO [facility] SPOKE WITH MYRA IN ADM SHE RECEIVED UPDATE. DCP TO FOLLOW.
[2018-10-13] VITALS (16 sets, daily range): BP systolic 85–116; BP diastolic 40–82
[2018-10-13 05:10] LABS: BE(vivo) -4.4 mmol/L (-2 to +3); HCO3 20.5 mmol/L (22.0-26.0); PCO2 36.8 mmHg (35.0-45.0); PO2 82.2 mmHg (80.0-100.0); pH 7.364 (7.360-7.450); sO2 95.8 % (92.0-98.0)
[2018-10-13 05:15] LABS: BASOPHILS 0.1 % (0.0-2.0); HEMATOCRIT 27.4 % (37.0-47.0); MCH 27.7 pg (26.0-34.0); MCHC 32.7 g/dL (28.0-37.0); MCV 84.8 fL (80.0-100.0); MONOCYTES 3.6 % (1.0-8.0); PLATELET COUNT 425 thou/uL (150-400); POLYS 89.3 % (36.0-66.0); RBC 3.23 mil/uL (4.20-5.00); WBC 10.8 thou/uL (4.0-11.0)
[2018-10-13 05:29] LABS: ALBUMIN 1.7 g/dL (3.4-5.0); CALCIUM 8.8 mg/dL (8.5-10.1); POTASSIUM 3.4 mmol/L (3.5-5.1); TOTAL BILIRUBIN 0.5 mg/dL (<0.1-1.0); TOTAL PROTEIN 5.8 g/dL (6.4-8.2)
--- NOTE | 2018-10-13 06:29 | NUR ---
END OF SHIFT NOTE ASSUMED CARE AT APPROX 1900 10/12. PT INTUBATED AND DROWSY UPON ARRIVAL. TUBE FEEDS REACHED GOAL RATE OF 50ML/HR, RESIDUAL HAS BEEN LESS THAN 30MLS. COMPLETE BED BATH GIVEN. KATHRINE HUGGER PLACED ON PATIENT TO MAINTAIN TEMPERATURE. NO SIGNIFICANT EVENTS OVER NIGHT.
--- NOTE | 2018-10-13 09:43 | EKG ---
[place] [address] Chat& ([employer]And)[facility] [email or web address] [address] ELECTROCARDIOGRAM REPORT Name: PIETRO MOSER Room #: 244-P ADM IN M.R.#: [id number] Admission: 10/07/18 Attend Phys: Lima Ashley Discharge: Date of : 46 Report #: [id number] THIS REPORT FOR: //name// [facility] Test Date: 2018-10-10 Test Time: 00:58:02 Pat Name: PIETRO LUQUE Department: Room: 244 Gender: F Bakery Assistant: bandar : 1950 Requested By: Lima Ashley Order Number: [id number] MD: Gopal Stacy Measurements Intervals [place] Rate: 112 P: IA: QRS: 19 QRSD: 89 T: -52 QT: 352 QTc: 481 Interpretive Statements Atrial fibrillation Low voltage, extremity leads Borderline ST depression, diffuse leads Compared to ECG 10/07/2018 10:36:06 ST (T wave) deviation now present Electronically Signed On 10-13-2018 9:42:51 CDT by Gopal Stacy [email or web address] <ELECTRONICALLY SIGNED> By: Gopal Stacy MD, [facility] 10/13/18 0942 0058 0058 Gopal Stacy MD, [facility] /EPI
--- NOTE | 2018-10-13 15:16 | NUR ---
ASSUMED CARE OF PT AT 0700 THIS SHIFT. PT HAS BEEN INTUBATED AND SEDATED THIS SHIFT. PT FOLLOWS COMMANDS WHEN ON SEDATION VACATION, HOWEVER PT UNABLE TO MOVE LEFT HAND, OR FEET. PT IS CURRENTLY RESTING COMFORTABLY IN ROOM. PT HAS HAD VISITORS THIS SHIFT, EDUCATION WAS PROVIDED. PLAN OF CARE IS TO CONTINUE TO MONITOR CLOSELY AT THIS TIME.
[2018-10-14] VITALS (25 sets, daily range): BP systolic 84–118; BP diastolic 48–72
--- NOTE | 2018-10-14 00:54 | NUR ---
ASSUMED CARE OF PT AT 1900. PT SEDATED ON PROPOFOL. PT ABLE TO FOLLOW SIMPLE COMMANDS AND IS ABLE TO TRACK WITH EYES. PT'S DAUGHTER AT BEDSIDE AT 1999. SHE REQUESTED TO SPEAK TO DR WASHBURN TOMORROW VIA PHONE. RN SPOKE WITH DR WASHBURN AT [phone]. DR WASHBURN WILL ATTEMPT TO CONTACT HER VIA PHONE TOMORROW. PT A FIB. VERY EDEMATOUS. TOLERATING TUBE FEEDING. WILL CONTINUE TO MONITOR.
[2018-10-14 05:15] LABS: ALBUMIN 1.8 g/dL (3.4-5.0); CALCIUM 8.5 mg/dL (8.5-10.1); POTASSIUM 3.6 mmol/L (3.5-5.1); TOTAL BILIRUBIN 0.4 mg/dL (<0.1-1.0); TOTAL PROTEIN 5.3 g/dL (6.4-8.2)
[2018-10-14 05:39] LABS: HEMATOCRIT 27.1 % (37.0-47.0); HEMOGLOBIN 8.9 gm/dL (12.0-15.0); MCH 27.8 pg (26.0-34.0); MCHC 32.9 g/dL (28.0-37.0); MCV 84.4 fL (80.0-100.0); PLATELET COUNT 388 thou/uL (150-400); RBC 3.21 mil/uL (4.20-5.00); RDW 17.1 % (10.5-14.5); WBC 14.3 thou/uL (4.0-11.0)
[2018-10-14 05:41] LABS: BE(vivo) -4.5 mmol/L (-2 to +3); HCO3 19.8 mmol/L (22.0-26.0); PCO2 33.6 mmHg (35.0-45.0); PO2 99.8 mmHg (80.0-100.0); pH 7.388 (7.360-7.450); sO2 97.6 % (92.0-98.0)
[2018-10-14 08:41] LABS: ABSOLUTE NEUTROPHILS 12.6 thou/uL (1.4-8.2); ANISOCYTOSIS 2+; OVALOCYTES 1+; PLATELET ESTIMATE NORMAL
[2018-10-14 09:10] LABS: BE(vivo) -3.8 mmol/L (-2 to +3); PCO2 37.2 mmHg (35.0-45.0); PO2 103.5 mmHg (80.0-100.0); sO2 97.6 % (92.0-98.0)
--- NOTE | 2018-10-14 18:21 | NUR ---
ASSESMENTS AND INTERVENTIONS DOCUMENTED. PATIENT REMIANS SEDATED AND INTUBATED. PATIENT FREQUENTLY SUCTIONED AND TOLERATED IT WELL. PATIENT WAS ABLE TOLERATE CPAP FOR 3 HOURS THEN PLACED BACK ON ASSIST CONTROL ON [facility]. PATIENT EDUCATED, AND WILL CONTINUE WITH PLAN OF CARE. THE PLAN OF CARE IS TO MONITOR AIRWAY, DECREASE INFECTION AND INCREASE OXYGENATION.
[2018-10-15] VITALS (18 sets, daily range): BP systolic 96–123; BP diastolic 45–79
[2018-10-15 05:09] LABS: BE(vivo) -2.8 mmol/L (-2 to +3); PCO2 33.1 mmHg (35.0-45.0); PO2 135.9 mmHg (80.0-100.0); pH 7.421 (7.360-7.450); sO2 98.8 % (92.0-98.0)
--- NOTE | 2018-10-15 06:08 | NUR ---
ASSUMED CARE OF PATIENT AT 1900. VSS, TEMP LOW, BEAR HUGGER ON. BATH GIVEN. LASIX AND ALBUMIN ORDERED. SEE DOCUMENTATION. TURNED Q2. DAUGHTER UPDATED ON POC. DR WASHBURN GIVEN HER NUMBER.
[2018-10-15 06:20] LABS: HEMOGLOBIN 8.8 gm/dL (12.0-15.0); MCH 27.3 pg (26.0-34.0); MCHC 32.4 g/dL (28.0-37.0); MCV 84.3 fL (80.0-100.0); PLATELET COUNT 345 thou/uL (150-400); RDW 16.8 % (10.5-14.5); WBC 14.3 thou/uL (4.0-11.0)
[2018-10-15 06:40] LABS: ALBUMIN 2.2 g/dL (3.4-5.0); CALCIUM 8.3 mg/dL (8.5-10.1); CREATININE 0.9 mg/dL (0.6-1.0); POTASSIUM 3.6 mmol/L (3.5-5.1); TOTAL BILIRUBIN 0.6 mg/dL (<0.1-1.0); TOTAL PROTEIN 5.6 g/dL (6.4-8.2)
[2018-10-15 07:08] LABS: ABSOLUTE NEUTROPHILS 12.6 thou/uL (1.4-8.2); ANISOCYTOSIS 1+; METAMYELOCYTES 2 %; PLATELET ESTIMATE NORMAL; POIKILOCYTOSIS 1+; POLYCHROMASIA SLIGHT
[2018-10-15 07:09] LABS: OVALOCYTES OCCASIONAL
[2018-10-15 10:59] LABS: BE(vivo) -2.4 mmol/L (-2 to +3); HCO3 21.9 mmol/L (22.0-26.0); PCO2 35.6 mmHg (35.0-45.0); PO2 127.8 mmHg (80.0-100.0); pH 7.407 (7.360-7.450); sO2 98.6 % (92.0-98.0)
--- NOTE | 2018-10-15 15:49 | NUR ---
PT EXTUBATED AT 1150, ON FACE SHIELD 40% OXYGEN, O2 SAT 98% RESPONDS APPROPRIATELY TO QUESTIONS, ASKING FOR DAUGHTER, WANTS NURSE TO CALL HER. 1230 CALLED DAUGHTER JOSE, UPDATED HER ON EXTUBATION AND CURRENT STATUS, SHE WAS VERY APPRECIATIVE FOR THE PHONE CALL. 1600 PT ON NASAL CANNULA, STILL ASKING FOR DAUGHTER, PT VERBALIZED, "NO MORE POKES, I'M SICK AND I WANT TO GO HOME, AND I KNOW I CAN." WILL CONTINUE TO MONITOR. VITAL SIGNS STABLE, SEE CHARTING.
[2018-10-16] VITALS (21 sets, daily range): BP systolic 91–134; BP diastolic 40–74
--- NOTE | 2018-10-16 03:28 | NUR ---
PATIENT ALERT TO SELF AND SITUATION, REORIENTED TIME. 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 ON 2L NASAL CANNULA, NON-PRODUCTIVE COUGH. NG TUBE TO RIGHT NARE, TOLERATING TUBE FEEDINGS. SUPERPUBIC CATHETER IN PLACE. RIGHT IJ INTACT. TURNED Q2H. BLOOD SUGAR MONITORED. PATIENT VERY RESTLESS THROUGHOUT THE NIGHT. SHE STATED "I'M AFRAID TO GO TO BED, BECAUSE THEY WILL PUT THAT VACCUUM BACK IN MY THROAT" REFERRING TO THE VENTILATOR. PATIENT REASSURED. NO SIGNS OF ACUTE DISTRESS NOTED AT THIS TIME. WILL CONTINUE TO MONITOR.
--- NOTE | 2018-10-16 10:31 | NUR ---
ORDER SWALLOW EVALUATION BY SPEECH FOR TODAY. GAVE PT BATH AND COMPLETED LINEN CHANGE. REINFFORCE DRESSING AROUND SUPRAPUBIC SITE. APPEARS TO BE LEAKING URINE FROM SITE CHUX WERE SATURATED.
--- NOTE | 2018-10-16 16:48 | NUR ---
PT EXTUBATED 10/15. ADMIT FROM LTC AT [facility] AND DC NETWORK SUPPORT ADMINISTRATOR TO UPDATE FAACILITY FOR POSSIBLE W/E DC.
--- NOTE | 2018-10-16 19:02 | NUR ---
BEDSIDE REPORT GIVEN TO CHLOE ANN.
[2018-10-17] VITALS (23 sets, daily range): BP systolic 108–136; BP diastolic 71–92
--- NOTE | 2018-10-17 06:12 | NUR ---
RECEIVED REPORT FROM SETH MALIK AND ASSUMED PATIENT CARE AT 1900. PATIENT LYING IN BED AND IS AAOX1 (NAME AND BIRTHDAY). PATIENT NOTED TO BE ON AMIODARONE GTT WITH A-FIB/A-FLUTTER ON THE MONITOR. VS REMAINED STABLE DURING THIS SHIFT AND NO ACUTE EVENTS WERE NOTED. PATIENT WAS AWAKE MOST OF THE NIGHT. HOURLY ROUNDING COMPLETED. PATIENT PROGRESSING TOWARD GOAL.
--- NOTE | 2018-10-17 18:38 | NUR ---
PATIENT ALERT TO SELF AND SITUATION, RE-ORIENTED TO TIME AND PLACE. ON 2L NASAL CANNULA. A-FIB ON SERVICE REPRESENTATIVE. RIGHT NARE NG TUBE IN PLACE, TOLERATING TUBE FEEDING AT GOAL RATE. SWALLOW EVALUATION COMPLETED TODAY, DISCUSSED RESULT WITH DAUGHTER. SUPERPUBIC CATHETER IN PLACE WITH ADEQUATE OUTPUT. BLOOD SUGAR MONITORED. PLAN OF CARE DISCUSSED WITH PATIENT AND FAMILY. NO SIGNS OF ACUTE DISTRESS NOTED AT THIS TIME. WILL CONTINUE TO MONITOR.
[2018-10-18] VITALS (20 sets, daily range): BP systolic 113–144; BP diastolic 65–87
--- NOTE | 2018-10-18 04:06 | NUR ---
PT HAS SLEPT MOST OF THE NIGHT, AWAKES EASILY ORIENTED TO SELF/SITUATION AND FORGETFULL. VITALS ARE STABLE. AFIB TO FLUTTER, WITH CONTROLLED HEART RATE. TUBE FEEDING AT GOAL RATE, MINIMAL RESIDUALS, PT NPO. BM LAST NIGHT LOOSE/LIQUID.SUPRAPUBIC CATH LEAKING, CLEAN DRESSING APPLIED. WOUNDCARE WAS DONE. WILL COMPLETE AM CARES AND CONTIUNE WITH PLAN OF CARE.
--- NOTE | 2018-10-18 08:09 | HC ---
[facility] [address] [place] [address] CONSULTATION Name: PIETRO MOSER Room #: 244-P [facility] IN M.R.#: [id number] Admission: 10/07/18 Attend Phys: Lima Ashley Discharge: Date of : 46 Report #: [id number] THIS REPORT FOR: //name// CC: Lima Gomez DATE OF SERVICE: 10/17/2018 CARDIOLOGY CONSULTATION INDICATION: Atrial fibrillation. HISTORY OF PRESENT ILLNESS: This is a 68-year-old skilled nursing resident with a past medical history significant for CVA with left-sided hemiparesis, chronic atrial fibrillation, encephalopathy, prior sepsis, COPD, multiple sclerosis, who was transferred from [facility] on 10/07/2018 with altered mental status. She was felt to be hypoxic. Several days later, while being repositioned, the patient's saturation decreased. She went into PEA, with probable aspiration requiring intubation and CPR. During that initial intubation, she was hypotensive requiring pressor support. She had evidence for sepsis as well as mucus plugging requiring bronchoscopy. During this time, she has been in atrial fibrillation and amiodarone was started IV for unclear reasons. She was extubated 2 days ago, failed her swallowing study. She still has an NG tube and may require PEG placement. We are asked to evaluate regarding amiodarone therapy. She has a prior history of permanent atrial fibrillation, had been on metoprolol and digoxin at one point. She did have bradycardia and her heart rate was maintained with metoprolol only. The patient is awake and minimally verbal. PAST MEDICAL HISTORY: CVA with left-sided weakness, multiple sclerosis, essentially bedridden, history of breast cancer, COPD, chronic atrial fibrillation, previous sepsis with aspiration. ALLERGIES: ERYTHROMYCIN, GENTAMICIN, AZITHROMYCIN, CEPHALOSPORIN. MEDICATIONS: Please see MAR for full listing. FAMILY HISTORY: Unknown. SOCIAL HISTORY: Negative for tobacco use. REVIEW OF SYSTEMS: Unobtainable. PHYSICAL EXAMINATION: VITAL SIGNS: Blood pressure is 130/70, heart rate is 90 beats per minute. GENERAL APPEARANCE: An elderly-appearing female, awake and minimally verbal. [facility] [address] [place] [address] CONSULTATION Name: BLUE LUQUEPIETRO Room #: 244-P [facility] IN M.R.#: [id number] Admission: 10/07/18 Attend Phys: Lima Ashley Discharge: Date of : 46 Report #: [id number] HEENT: Normocephalic, atraumatic. Oral mucosa moist. NECK: Supple. LUNGS: Diminished breath sounds at the bases. CARDIAC: Irregularly irregular, S1, S2 positive. ABDOMEN: Protuberant, soft. EXTREMITIES: No cyanosis or chronic edema. ASSESSMENT AND PLAN: 1. Chronic atrial fibrillation, heart rate is under control. She needs to resume Eliquis when able. We will discontinue amiodarone at this time. We will start a low dose beta anthony as blood pressure allows. 2. Respiratory failure, continue with antibiotics. Appears to be stable at this time. 3. Cerebrovascular accident with left-sided hemiparesis. Failed her swallowing study, may need a PEG. 4. Chronic obstructive pulmonary disease, as per Pulmonary. 5. Urinary tract infection, continue with antibiotics. <ELECTRONICALLY SIGNED> By: Eleazar Fernández MD 10/18/18 0809 1623 [id number] Eleazar Fernández MD /nt
[2018-10-18 08:26] LABS: HEMATOCRIT 30.8 % (37.0-47.0); HEMOGLOBIN 9.9 gm/dL (12.0-15.0); MCH 27.3 pg (26.0-34.0); MCHC 32.2 g/dL (28.0-37.0); MCV 84.8 fL (80.0-100.0); PLATELET COUNT 354 thou/uL (150-400); RBC 3.63 mil/uL (4.20-5.00); RDW 17.9 % (10.5-14.5); WBC 20.8 thou/uL (4.0-11.0)
[2018-10-18 08:33] LABS: CALCIUM 8.4 mg/dL (8.5-10.1); CREATININE 0.8 mg/dL (0.6-1.0); TOTAL BILIRUBIN 0.6 mg/dL (<0.1-1.0); TOTAL PROTEIN 5.8 g/dL (6.4-8.2)
[2018-10-18 08:42] LABS: URINE BILIRUBIN NEGATIVE (Negative); URINE BLOOD 2+ (Negative); URINE CLARITY CLOUDY; URINE COLOR YELLOW; URINE GLUCOSE-RANDOM* NEGATIVE (Negative); URINE KETONES NEGATIVE (Negative); URINE NITRITE-REFLEX NEGATIVE (Negative); URINE PROTEIN (DIPSTICK) NEGATIVE (Negative); URINE SPECIFIC GRAVITY 1.015 (1.005-1.035); URINE UROBILINOGEN 0.2 E.U./dl (0.2-1.0)
[2018-10-18 08:43] LABS: URINE LEUKOCYTES-REFLEX 1+ (Negative)
[2018-10-18 09:11] LABS: CASTS None Seen /LPF (None Seen); CRYSTALS None Seen /LPF (None Seen); SQUAMOUS 4-10 Moderate /LPF (0-3)
[2018-10-18 09:12] LABS: URINE RBC 3-10 Few /HPF (0-2); URINE WBC-REFLEX 6-15 Few /HPF (0-5)
[2018-10-18 09:13] LABS: YEAST-REFLEX Present (None Seen)
[2018-10-18 10:20] LABS: ABSOLUTE NEUTROPHILS 18.7 thou/uL (1.4-8.2); METAMYELOCYTES 2 %; MYELOCYTES 1 %
[2018-10-18 10:21] LABS: ANISOCYTOSIS 1+; OVALOCYTES 1+; SCHISTOCYTES RARE
--- NOTE | 2018-10-18 19:17 | NUR ---
PATIENT ALERT TO SELF AND SITUATION, REORIENTED TO PLACE AND TIME. 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 GENERALIZED EDEMA, LASIX GIVEN. ON 2L NASAL CANNULA, ATTEMPTED TO COMPLETE RESPIRATORY THERAPY PERCUSSION WHICH PATIENT BRAYAN STAFF. DR. WASHBURN AWARE. NG TUBE TO RIGHT NARE, TOLERATING TUBE FEEDINGS. SUPERPUBIC CATHETER LEAKING, DOCTORS AWARE. LEFT IJ TRIPPLE LUMEN DRESSING INTACT. PATIENT TURNED EVERY TWO HOURS. BLOOD SUGAR MONITORED. POC SPEECH RE-EVALUATION WITH PATIENT ON FRIDAY AND FAMILY CONSULT ABOUT PLAN OF CARE. PLAN OF CARE DISCUSSED WITH DAUGHTER. NO SIGNS OF ACUTE DISTRESS NOTED AT THIS TIME. REPORT GIVEN TO ONCOMING NURSE. PATIENT TRANSFERRED TO [facility].
--- NOTE | 2018-10-19 03:14 | NUR ---
continues on 2 liters n/c. she needs encuraging to cough and deep breath. complains of stomach pain, medication effective for pain control. resting quietly after getting her bath done and wound care completed. continues on peg tube feedings. progressing slowly toward discharge goals.
[2018-10-19 04:08] VITALS: BP 134/85
[2018-10-19 07:12] LABS: ABSOLUTE NEUTROPHILS 15.2 thou/uL (1.4-8.2); HEMATOCRIT 29.3 % (37.0-47.0); HEMOGLOBIN 9.7 gm/dL (12.0-15.0); LYMPHOCYTES 1.6 % (24.0-44.0); MCH 28.1 pg (26.0-34.0); MCHC 33.1 g/dL (28.0-37.0); MCV 84.9 fL (80.0-100.0); PLATELET COUNT 322 thou/uL (150-400); POLYS 93.4 % (36.0-66.0); RBC 3.45 mil/uL (4.20-5.00); RDW 17.7 % (10.5-14.5); WBC 16.3 thou/uL (4.0-11.0)
[2018-10-19 07:29] LABS: CALCIUM 8.4 mg/dL (8.5-10.1); CREATININE 0.7 mg/dL (0.6-1.0); TOTAL BILIRUBIN 0.7 mg/dL (<0.1-1.0); TOTAL PROTEIN 5.6 g/dL (6.4-8.2)
--- NOTE | 2018-10-19 10:21 | NUR ---
vivek sent updates to Thomas at [facility], also texted Thomas to see if they are taking patient back skilled? Patient likely to discharge today. Chart copy ordered from Kaushik/Ebony.
[2018-10-19 11:39] VITALS: BP 121/85
--- NOTE | 2018-10-19 13:57 | NUR ---
STALIN reviewed chart and spoke with nursing and attending physicain. Pt was transferred to from ICU. Pt may need possible peg tube placement. Awaiting input from pt's dtr. strategic planner faxed updates to [facility] for review. STALIN is following to assist as needed with discharge planning.
--- NOTE | 2018-10-19 15:23 | NUR ---
WOUND CARE FOLLOW UP; LEFT LATERAL ANKLE HAS TENDON EXPOSED, THE RIGHT POSTERIOR CALF AND RIGHT POSTERIOR ANKLE HAVE TENDON EXPOSED. RECOMMEDNATION; CONTINUE DRESSINGS FOR NOW AND CONSULT DR MAGGY FLORES DISCUSSED WITH RN
[2018-10-19 17:47] VITALS: BP 128/81
[2018-10-19 20:17] VITALS: BP 155/93
--- NOTE | 2018-10-20 00:30 | NUR ---
moving patient closer to the nurses desk for her safety and ease of observation. relocation to room 362
[2018-10-20 04:35] VITALS: BP 137/83
--- NOTE | 2018-10-20 05:18 | NUR ---
needs frequent turning and keeping dry. her skin weeps fluids from edema and her suprapubic catheter leaks. she needs reassurance of her safety, she benefits from having her bed close to nurses station. continues on peg tube feedings,tolerating without residuals. careplan reviewed. progressing slowly toward discharge goals.
[2018-10-20 08:23] VITALS: BP 120/83
[2018-10-20 11:22] VITALS: BP 127/82
[2018-10-20 14:44] VITALS: BP 121/85
--- NOTE | 2018-10-20 18:39 | NUR ---
ASSUMED PATIENT CARE AT 0700. ALERT TO SELF. ANXIOUS. REFUSED ORAL SUCTION. GENERLIZED EDEMA AND WEEPING. WOUND CARE PER ORDER. ASSISTED PATIENT TURN. TOLERATED ON 2L/NC AND TUBE FEEDING. NOT TOWARDS POC GOALS.
[2018-10-20 19:31] VITALS: BP 126/88
[2018-10-21 03:08] VITALS: BP 122/85
[2018-10-21 08:28] VITALS: BP 126/89
--- NOTE | 2018-10-21 10:20 | NUR ---
brand planner [facility] and notified Thomas/admissions at facility that updates were being sent over.
[2018-10-21 11:30] VITALS: BP 126/83
--- NOTE | 2018-10-21 14:29 | NUR ---
SW reviewed chart and spoke with attending physician. Pt to have a bronch today. Palliative care consult to be ordered to discuss plan of care and treatment goals with pt's family. land planner to send clinical updates to [facility]. STALIN is following to assist as needed with discharge planning.
--- NOTE | 2018-10-21 14:45 | HC ---
[facility] [place] [address] CONSULTATION Name: PIETRO MOSER Room #: 362-P [facility] IN M.R.#: [id number] Admission: 10/07/18 Attend Phys: Lima Ashley Discharge: Date of : 46 Report #: [id number] THIS REPORT FOR: //name// CC: Lima Gomez DATE OF SERVICE: 10/20/2018 WOUND CARE CONSULTATION PERSONAL PHYSICIAN: Dr. Ashley. CHIEF COMPLAINT: Bilateral lower extremity ulcerations. HISTORY OF PRESENT ILLNESS: This is a 68-year-old white female who resides in a retirement, who has been hospitalized for the past several days for respiratory failure, pneumonia, and lower extremity edema. The patient recently was noted to have ulcerations on her right lower extremity on the outer aspect, as well as a second wound on the outer aspect of the left dorsal foot. We have been asked to assist in the care of these ulcerations at this time. The patient states that these ulcers have been present for several weeks. They started out as small blisters, which then ruptured leaving open ulcerations. The patient denies any other associated ulcerations on the rest of her body at this time. The patient states she has no pain associated with the ulcerations. PAST MEDICAL HISTORY: Significant for previous CVA with left-sided hemiparesis, generalized debility, recent pneumonia requiring mechanical ventilation. The patient also has cardiopulmonary arrest with resuscitation, history of atrial fibrillation, gastroesophageal reflux disease, bilateral total knee replacements, breast cancer with a previous left mastectomy. The patient is essentially bedridden given her generalized debility. CURRENT MEDICATIONS: Multiple, I reviewed the patient's medication list. DRUG ALLERGIES: CEPHALEXIN, ERYTHROMYCIN, AZITHROMYCIN and GENTAMICIN. SOCIAL HISTORY: The patient does not smoke or drink alcohol. FAMILY HISTORY: Not pertinent to current medical condition. REVIEW OF SYSTEMS: CONSTITUTIONAL: The patient denies fevers or chills at this time. NEUROLOGIC: The patient complains of overall generalized weakness with associated left-sided chronic hemiparesis. No headache. EYES: No complaints. ENT: No complaints. [facility] [address] [place] [address] CONSULTATION Name: BLUE REBELPIETRO Room #: 362-P [facility] IN M.R.#: [id number] Admission: 10/07/18 Attend Phys: Lima Ashley Discharge: Date of : 46 Report #: [id number] CARDIAC: The patient has chronic lower extremity edema, but no chest pain or palpitations. RESPIRATORY: The patient denies shortness of breath, cough or wheezes. GASTROINTESTINAL: The patient denies nausea, vomiting, or abdominal pain. GENITOURINARY: The patient denies urgency or frequency. MUSCULOSKELETAL: No complaints. SKIN: There is chronic ulceration on the right lateral lower extremity proximal to the ankle and the left dorsal lateral foot. PHYSICAL EXAMINATION: VITAL SIGNS: Temperature 36.6, pulse 105, respirations 24, BP 121/85. GENERAL: This is an alert and oriented x 3, morbidly obese white female who is in mild distress secondary to her symptoms. HEENT: Normocephalic, atraumatic. Mucous membranes are somewhat dry. Pupils are round. Sclerae white. NECK: Supple, without JVD. LUNGS: Diminished breath sounds heard throughout with occasional scattered wheeze. CHEST: Nontender. HEART: Tachycardic and irregular. ABDOMEN: Obese, soft, nontender. On the lateral aspect of the bilateral lower extremities, there was 2-3+ edema. Right lateral lower extremity, proximal to the lateral malleolus is a chronic ulcer, which is 100% slough filled without significant undermining or tunneling. Moderate amount of serosanguineous drainage noted without odor. Periwound is intact. The right heel, foot and toes are all intact. On the dorsal lateral aspect of the left foot is a small superficial stage 3 ulcer, which has a small area of a tendon exposed. It is otherwise a mix of granulation and slough. Minimal amount of serosanguineous drainage noted without odor. Periwound is intact without undermining or tunneling. NEUROLOGIC: Cranial nerves 2-12 grossly intact. Motor and sensory grossly intact. LABORATORY DATA: White count 16.3, hemoglobin 9.7, BUN 50, creatinine 0.7. Albumin 2.0. IMPRESSION: 1. Chronic ulceration, right lateral lower extremity proximal to the lateral malleolus, stage 3, without signs of infection. 2. Chronic ulceration stage 3, left dorsal lateral foot. 3. History of pneumonia with respiratory failure. 4. Protein-calorie malnutrition -- severe with albumin 2.0. 5. Generalized debility with previous cerebrovascular accident and left-sided hemiparesis. PLAN: At this time, we will start Xeroform and a foam dressing to both the [address] [place] [address] CONSULTATION Name: PIETRO MOSER Room #: 362-P [facility] IN M.R.#: [id number] Admission: 10/07/18 Attend Phys: Lima Ashley Discharge: Date of : 46 Report #: [id number] sites and have this changed daily. We will make sure we maximize the patient's oral protein supplementation for healing. We will utilize physical and occupational if the patient is able to for strengthening. We will continue all other current medications and we will continue to follow the patient. <ELECTRONICALLY SIGNED> By: Luis Miguel Venegas MD 10/21/18 [id number] [id number] Luis Miguel Venegas MD /nt
[2018-10-21 15:57] VITALS: BP 126/90
[2018-10-21 19:35] VITALS: BP 122/88
--- NOTE | 2018-10-21 20:41 | NUR ---
PATIENT ORIENTED TO SELF AND RESPONDS TO YES/NO QUESTIONS. DAUGHTER AT BEDSIDE DURING LUNCH AND EVENING. DAUGHTER STATES SHE MAY SPEAK WITH DOCTOR TOMORROW ABOUT CHANGING CODE STATUS OF PATIENT TO NO CODE. PATIENT TO HAVE BRONCOSCOPY TOMORROW AT 1300. PATIENT TO BE NPO AT MIDNIGHT.
[2018-10-22 04:40] VITALS: BP 124/79
[2018-10-22 06:49] LABS: HEMATOCRIT 28.2 % (37.0-47.0); HEMOGLOBIN 9.2 gm/dL (12.0-15.0); MCH 28.1 pg (26.0-34.0); MCHC 32.6 g/dL (28.0-37.0); MCV 86.3 fL (80.0-100.0); RBC 3.26 mil/uL (4.20-5.00); RDW 18.4 % (10.5-14.5); WBC 15.3 thou/uL (4.0-11.0)
[2018-10-22 06:53] LABS: CALCIUM 8.4 mg/dL (8.5-10.1); CREATININE 0.7 mg/dL (0.6-1.0)
--- NOTE | 2018-10-22 07:49 | NUR ---
FOLLOWING POC WITH IVF. TUBE FEEDING STOPPED AT 2400 SO PT CAN HAVE BRONCH DONE TODAY AT 1300. SUPRAPUBIC CATH IS STILL LEAKING AND REQUIRING MULTIPLE BED CHANGES. PT HAS EXCORIATION TO [place]ETTE AREA DUE TO VAST AMOUNTS OF URINE. LEGS HAVE +4 EDEMA. FALL PRECAUTIONS AND ISOLATION PRECAUTIONS BEING FOLLOWED. HOURLY ROUNDING.
[2018-10-22 08:02] VITALS: BP 120/70
--- NOTE | 2018-10-22 14:47 | NUR ---
SW reviewed chart and spoke with nursing and attending physician. Pt has NG tube in place. TF on hold for possible bronch. Pt is on IV steroids. Palliative care physician to meet with pt's dtr regarding plan of care and treatment goals. SW is following to assist as needed with discharge planning.
[2018-10-22 15:56] VITALS: BP 113/62
[2018-10-22 17:43] VITALS: BP 151/101
[2018-10-22 17:47] VITALS: BP 150/97
--- NOTE | 2018-10-22 19:42 | NUR ---
PATIENTS DAUGHTER TALKED WITH DR. ROBERTSON AND DR. SCHULTZ. DISCUSSION WAS MADE THAT DR. SCHULTZ WOULD PUT THROUGH DNR STATUS FOR BRONCHOSOPY AND THERE AFTER. DR. ROBERTSON EXPRESSED NO BRONCHOSCOPY WOULD BE PERFORMED TODAY AND TO RESUME TUBE FEEDING. HE ALSO EXPRESSED TO DISCONTINUE IV FLUIDS AFTER CURRENT BAG THAT WAS STARTED. NURSE ASKED IF NPO STATUS SHOULD BE RESUMED AT MIDNIGHT. NO FURTHER ORDERS AT THIS TIME FOR BRONCHOSCOPY PLANS. ORAL CARE PROVIDED ABLE. PATIENT BITES DOWN ON SWAB AND CHEWS IT, NOT ALLOWING STAFF TO GET IT OUT OF HER MOUTH. PHYSICIAN ASSISTED RN TO GET SWAB OUT OF HER MOUTH. SHE HAS BEEN TURNED. VALERO LEAKED PER PATIENT NORMAL FOR HER. NURSE CLEANED AROUND SITE EVERY TWO HOURS AND CHANGED TOWELS AND PLACED CREAM. PER WOUND CARE, PLACE [facility] ON [address]. NURSE PROVIDED SOME BEDSIDE TIME TO REASSURE PATIENT AND TO KEEP HER COMPANY INTERMITTENTLY. REPORT GIVEN TO CRACKLING PRESS OPERATOR RN FOR CONTINUATION OF CARE.
[2018-10-22 20:10] VITALS: BP 121/88
[2018-10-23 00:15] VITALS: BP 138/97
[2018-10-23 04:20] VITALS: BP 126/79
--- NOTE | 2018-10-23 06:09 | NUR ---
PT MAKING POOR PROGRESS TOWARDS GOALS. ON O2 AT 2L PER NC THROUGHOUT THE NIGHT. O2 SATS 93-100% PT FREQUENTLY CONGESTED WITH CLEARISH AND BROWNISH SECRECTIONS. X2 DOSES GIVEN FOR PAIN "ALL OVER." PT HAS VERY WEAK COUGH, SHE IS NOT ABLE TO MOBILIZE SECRETIONS. PT ALSO UNABLE TO FOLLOW SOME COMMANDS. SHE WILL BITE ANYTHING PLACED IN HER MOUTH DESPITE INSTRUCTIONS TO NOT DO SO. ORIENTED TO NAME ONLY.
[2018-10-23 11:47] VITALS: BP 131/80
--- NOTE | 2018-10-23 15:15 | NUR ---
STALIN reviewed chart and spoke with nursing, attending physician and palliative care physician. Pt's dtr has contacted [facility]. Pt has been on service with [facility] in the past. STALIN left voice message for pt's dtr, Renetta ([phone]). Pt's code status changed to DNR. STALIN spoke with Asmita in intake at [facility] who states that pt's dtr will be meeting with [facility] STALIN, Jacob, tomorrow at 1030. STALIN faxed clinical info to [facility] for review. STALIN also faxed clinical updates to [facility] for review and notified of possible weekend discharge back to them with hospice. STALIN also notified social services coordinator, Joie, to confirm they are able to accept pt back over the weekend. [facility] ambulance form and Outside the Hospital DNR form placed on pt's charge. Should pt discharge back to [facility] over the weekend, highlighted sections on ambulance form will need to be completed. Form to be faxed to [facility] and then call to arrange transportation. Outside the Hospital DNR will need to be signed by pt's dtr and attending physician. Final discharge orders/summary will need to be faxed to [facility] and [facility] when available. STALIN is available to assist as needed with discharge planning. [facility]-- [facility]-- [facility]--
[2018-10-23 16:10] VITALS: BP 130/89
[2018-10-23 19:22] VITALS: BP 135/67
[2018-10-23 22:35] VITALS: BP 123/90
[2018-10-24 03:48] VITALS: BP 140/96
[2018-10-24 07:53] VITALS: BP 121/81
[2018-10-24 17:43] VITALS: BP 129/87
[2018-10-24 19:39] VITALS: BP 139/83
--- NOTE | 2018-10-24 19:42 | NUR ---
ASSMED PATIENT CARE AT 0700. AWAKE. ASKING HELP. NOT COOPERATED WITH SUCTION. VALERO STILL LEEKING. [facility] CAME EVAL STATE PATIENT IS TOO HIGH LEVEL FOR [facility]. DPOA AGREE DC TO HOSPICE HOUSE. REFERRALS FAXED TO HOSPICE. NOT TOWARDS POC GOALS.
[2018-10-25 03:55] VITALS: BP 129/85
--- NOTE | 2018-10-25 06:39 | NUR ---
RESUMED CARE FOR PT THIS EVENING. FOLLOWING POC WITH TUBE FEEDING AND ENTERAL FLUSHES. HOSPICE EVAL SHOULD BE DONE TODAY. SUPRAPUBIC CATH STILL LEAKING. PT SPEAKS ON FEW WORDS. Q2 TURNS AND LOW LOSS PUMP IN PLACE. HOURLY ROUNDING.
[2018-10-25 07:51] VITALS: BP 130/91
[2018-10-25] MEDS ORDERED: LORAZEPAM I2 MG/1 M2 SUBLING (13:29)
[2018-10-25] MEDS ORDERED: MSL20MG/ML SUBLING (13:29)
--- NOTE | 2018-10-25 18:21 | NUR ---
RN received Dr to D/C pt to [facility], pt still is cofused, pt is o2 3-4 L/min/nc, We keep pt comfortble and free pain, RN has giving report, NG tube has removed per dr order, pt's daughter stays with the pt, pt was going to [facility] at 1540pm.
== END 2018-10-25 17:52 | disposition hospice, home (50) | DRG 870 ==
LOC: ER 10:08 → EROBS 14:26 → ICU 14:26 → 3W 10-18 18:38
PROVIDERS: Emergency Medicine; Internal Medicine Pulmonary Disease; Nurse Practitioner Family; Pediatrics; Specialist; ADMIT Hospitalist
PROC: 02HV33Z Insertion of Infusion Device into Superior Vena Cava, Percutaneous Approach (ICD-10-PCS; 2018-10-07)
PROC: 0B978ZZ Drainage of Left Main Bronchus, Via Natural or Artificial Opening Endoscopic (ICD-10-PCS; 2018-10-09)
PROC: 0B938ZZ Drainage of Right Main Bronchus, Via Natural or Artificial Opening Endoscopic (ICD-10-PCS; 2018-10-09)
PROC: 5A12012 Performance of Cardiac Output, Single, Manual (ICD-10-PCS; principal; 2018-10-10)
PROC: 0BH17EZ Insertion of Endotracheal Airway into Trachea, Via Natural or Artificial Opening (ICD-10-PCS; principal; 2018-10-10)
PROC: 5A1955Z Respiratory Ventilation, Greater than 96 Consecutive Hours (ICD-10-PCS; principal; 2018-10-10)
PROC: 0BH17EZ Insertion of Endotracheal Airway into Trachea, Via Natural or Artificial Opening (ICD-10-PCS; 2018-10-11)
DX: A41.9 Sepsis, unspecified organism (principal); L89.513 Pressure ulcer of right ankle, stage 3; L89.893 Pressure ulcer of other site, stage 3; J96.02 Acute respiratory failure with hypercapnia; J96.01 Acute respiratory failure with hypoxia; I46.9 Cardiac arrest, cause unspecified; J69.0 Pneumonitis due to inhalation of food and vomit; E43 Unspecified severe protein-calorie malnutrition; R65.21 Severe sepsis with septic shock; J15.212 Pneumonia due to Methicillin resistant Staphylococcus aureus; T83.511A Infection and inflammatory reaction due to indwelling urethral catheter, initial encounter; I69.354 Hemiplegia and hemiparesis following cerebral infarction affecting left non-dominant side; Z68.41 Body mass index [BMI] 40.0-44.9, adult; J98.19 Other pulmonary collapse; L03.115 Cellulitis of right lower limb; J98.11 Atelectasis; T17.590A Other foreign object in bronchus causing asphyxiation, initial encounter; E87.2 Acidosis; G93.40 Encephalopathy, unspecified; Z66 Do not resuscitate; N30.90 Cystitis, unspecified without hematuria; B96.4 Proteus (mirabilis) (morganii) as the cause of diseases classified elsewhere; J44.9 Chronic obstructive pulmonary disease, unspecified; F41.9 Anxiety disorder, unspecified; I10 Essential (primary) hypertension; I48.2 Chronic atrial fibrillation; E87.6 Hypokalemia; E83.42 Hypomagnesemia; Y95 Nosocomial condition; F09 Unspecified mental disorder due to known physiological condition; Z51.5 Encounter for palliative care; E66.01 Morbid (severe) obesity due to excess calories; X58.XXXA Exposure to other specified factors, initial encounter; K21.9 Gastro-esophageal reflux disease without esophagitis; J98.09 Other diseases of bronchus, not elsewhere classified; Z96.653 Presence of artificial knee joint, bilateral; Y84.6 Urinary catheterization as the cause of abnormal reaction of the patient, or of later complication, without mention of misadventure at the time of the procedure; Z74.01 Bed confinement status; Z90.12 Acquired absence of left breast and nipple; Z87.442 Personal history of urinary calculi; Z85.3 Personal history of malignant neoplasm of breast; Z79.01 Long term (current) use of anticoagulants; Z79.51 Long term (current) use of inhaled steroids; Z79.899 Other long term (current) drug therapy; Z88.1 Allergy status to other antibiotic agents; Z88.8 Allergy status to other drugs, medicaments and biological substances; Y92.89 Other specified places as the place of occurrence of the external cause; Z80.0 Family history of malignant neoplasm of digestive organs; Y93.89 Activity, other specified; Y99.8 Other external cause status
CPT/HCPCS: 10078; 10879